=== PATIENT | female | born 1960 | race Caucasian/White ===

== ENCOUNTER 2018-08-27 07:24 | Day surgery (SDC) | payer OTHER ==
[2018-08-27 08:23] LABS: ADD UMIC YES; UR ASCORBIC ACID NEGATIVE (NEGATIVE); UR BILIRUBIN (Dip) NEGATIVE (NEGATIVE); UR BLOOD (Dip) 1+ mg/dL (NEGATIVE); UR CLARITY SLIGHTLY CLOUDY (CLEAR); UR COLOR YELLOW (YELLOW); UR GLUCOSE (Dip) NEGATIVE (NEGATIVE); UR KETONES (Dip) NEGATIVE (NEGATIVE); UR LEUKOCYTE ESTERASE (Dip) TRACE Leu/ul (NEGATIVE); UR MUCUS FEW /HPF (NONE SEEN); UR NITRITE (Dip) NEGATIVE (NEGATIVE); UR RBC 3 /HPF (0-5); UR SPECIFIC GRAVITY (Dip) 1.021 (1.003-1.030); UR SQUAMOUS EPITHELIAL CELL FEW /HPF (FEW); UR TOTAL PROTEIN (Dip) NEGATIVE (NEGATIVE); UR UROBILINOGEN (Dip) NEGATIVE (NEGATIVE); UR WBC 4 /HPF (0-5)
[2018-08-27 08:29] LABS: ADD MAN DIFF? NO
[2018-08-27 08:32] LABS: WHITE BLOOD COUNT 6.9 10^3/ul (4.8-10.8)
[2018-08-27 08:32] LABS: ABNORMAL IP MESSAGE 1; BASOPHILS % 0.6 % (0.0-2.0); EOSINOPHILS # 0.3 10^3/ul (0.0-0.5); EOSINOPHILS % 3.9 % (0.0-7.0); HEMATOCRIT 43.8 % (37.0-47.0); LYMPHOCYTES % 29.7 % (15.0-51.0); MEAN CORPUSCULAR HEMOGLOBIN 31.3 pg (29.0-33.0); MEAN CORPUSCULAR HGB CONC 34.2 g/dl (32.0-37.0); MEAN CORPUSCULAR VOLUME 91.3 fl (82.0-101.0); MEAN PLATELET VOLUME 13.2 fl (7.4-10.4); MONOCYTE # 0.7 10^3/ul (0.3-0.9); MONOCYTES % 10.5 % (0.0-11.0); NEUTROPHIL # 3.8 10^3/ul (1.6-7.5); PLATELET COUNT 132 10^3/UL (140-415); RED CELL DISTRIBUTION WIDTH 12.8 % (11.5-14.5)
[2018-08-27 08:35] LABS: POSITIVE DIFF @See below
[2018-08-27] MEDS ORDERED: PROPOFOL 20 ML (09:57)
[2018-08-27] MEDS ORDERED: MIDAZOLAM 1 MG/ML 2 ML INJ (09:57)
[2018-08-27] MEDS ORDERED: FENTAnyl 50 MCG/ML VIAL (09:58)
[2018-08-27] MEDS ORDERED: KETOROLAC 30 MG INJ (09:59)
[2018-08-27] MEDS ORDERED: DIPHENHYDRAMINE 50 MG INJ IV (10:00)
[2018-08-27] MEDS ORDERED: HYDROmorphONE 1 MG/5 ML IV SYRINGE IV ×2 (10:00)
[2018-08-27] MEDS ORDERED: OXYCODONE/ACETAMINOPHEN (5/325) TAB PO (10:00)
[2018-08-27] MEDS ORDERED: hydrALAzine 20 MG INJ IV (10:00)
[2018-08-27] MEDS ORDERED: LABETALOL HCL 20MG INJ IV (10:00)
[2018-08-27] MEDS ORDERED: MEPERIDINE 25 MG INJ IV (10:00)
[2018-08-27] MEDS: LIDOCAINE 1%/EPI (1:100,000) (MDV) 20 ML (10:14)
[2018-08-27] MEDS: ONDANSETRON 4 MG INJ IV (10:54)
[2018-08-27] MEDS: HYDROmorphONE 1 MG/5 ML IV SYRINGE IV (10:54)
[2018-08-27] MEDS: OXYCODONE/ACETAMINOPHEN (5/325) TAB PO (12:05)
== END 2018-08-27 12:15 | disposition home or self-care (01) ==
LOC: SDS 07:24
DX: M65.342 Trigger finger, left ring finger (principal); I10 Essential (primary) hypertension; M67.442 Ganglion, left hand
CPT/HCPCS: 26160; 81001; 85025; 88304; 93005